=== PATIENT | male | born 1975 | race Caucasian/White ===

== ENCOUNTER 2016-11-06 20:24 | Outpatient (CLI) | payer MEDICAID | END 2016-11-06 20:25 | disposition critical access hospital (66) | LOC: EMS 20:24 | PROVIDERS: ATTEND Surgery | DX: R11.0 Nausea (principal) | CPT/HCPCS: A0425; A0429 ==

== ENCOUNTER 2016-11-06 20:31 | Emergency (ER) | payer MEDICAID ==
[2016-11-06] MEDS ORDERED: SODIUM CHLORIDE FLUSH 0.9% 10 ML SYRINGE IVP ONE (20:43)
[2016-11-06] MEDS ORDERED: ONDANSETRON 4 MG/2 ML VIAL IVP STA (20:46)
[2016-11-06] MEDS ORDERED: SODIUM CHLORIDE 0.9% 1,000 ML IV ONE (20:46)
[2016-11-06] MEDS ORDERED: diazePAM INJ 5 MG/ML SYRINGE IVP STA (20:47)
[2016-11-06] MEDS ORDERED: diazePAM INJ 5 MG/ML SYRINGE ONE ×2 (21:10→21:12)
[2016-11-06] MEDS ORDERED: ONDANSETRON 4 MG/2 ML VIAL ONE ×2 (21:10→21:12)
[2016-11-06 22:23] VITALS: BP 112/66
--- NOTE | 2016-11-06 22:45 | ED Physician Documentation ---
History of Present Illness - Stated complaint Stated Complaint: NAUSEA/MOTION SICKNESS - Chief complaint Chief Complaint: Neuro - History obtained from History obtained from: Patient, EMS - History of Present Illness Timing: Today - Additonal information Additional information: Patient is a 41 year old male with a history of hiv on retrovirals with no viral load who is presenting to the emergency department for vertigo and nausea. patient states that it started earlier today. patient states that he used to have episodes as a child. Patient's friend also reports that he took meth yesterday. Review of Systems Constitutional: denies: Fever, Chills Eyes: reports: Decreased vision Ears: denies: Ear pain, Drainage/discharge Nose: denies: Rhinorrhea / runny nose, Congestion Throat: denies: Sore throat GI: reports: Nausea, Vomiting. denies: Constipation, Diarrhea : denies: Dysuria, Frequency Skin: denies: Rash, Lesions Neurologic: reports: Other (vertigo). denies: Generalized weakness, Headache, Head injury Psychiatric: denies: Depressed, Suicidal, Homicidal Immunocompromised: denies: Immunocompromised PD PAST MEDICAL HISTORY - Past Medical History Past Medical History: Yes GI: GERD - Past Surgical History Past Surgical History: No - Present Medications Home Medications: Ambulatory Orders Medication Instructions Recorded Confirmed Efavirenz/Emtricitab/Tenofovir 1 tab PO QPM 11/06/16 11/06/16 [Atripla Tablet] Meclizine [Antivert] 12.5 mg PO Q6H #15 tablet 11/06/16 Ondansetron Odt [Zofran] 4 mg TL Q6H PRN #14 tablet 11/06/16 - Allergies Allergies/Adverse Reactions: Allergies Allergy/AdvReac Type Severity Reaction Status Date / Time No Known Drug Allergies Allergy Verified 11/06/16 20:36 - Social History Does the pt smoke?: No Smoking Status: Never smoker Does the pt drink ETOH?: No Does the pt have substance abuse?: Yes Substance Use and Type: Meth - Immunizations Immunizations are current?: Yes - POLST Patient has POLST: No PD ED PE NORMAL - Vitals Vital signs reviewed: Yes - General General: Alert and oriented X 3, Well developed/nourished - HEENT HEENT: Atraumatic, PERRL - Neck Neck: Supple, no meningeal sign - Cardiac Cardiac: RRR, No murmur - Respiratory Respiratory: No respiratory distress - Abdomen Abdomen: Soft, Non tender, Non distended - Derm Derm: Normal color, Warm and dry, No rash - Extremities Extremities: No deformity, No edema - Neuro Neuro: Alert and oriented X 3, 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 patient was nauseated with nystagmus. Patient symptoms worsened with position, and improved when he was still and lying to his right. patient was treated with fluids and valium. When patient was re-evaluated he stated he felt much better. patient's symptoms had resolved. Patient required no further work up and was stable for discharge with outpatient follow up. Departure - Departure Disposition: 01 Home, Self Care Clinical Impression: Benign positional vertigo Condition: Good Instructions: ED BPV Vertigo Follow-Up: KE DANG [Primary Care Provider] - As Needed Prescriptions: Meclizine [Antivert] 12.5 mg PO Q6H #15 tablet Ondansetron Odt [Zofran] 4 mg TL Q6H PRN #14 tablet PRN Reason: Nausea / Vomiting Comments: Your symptoms today are being caused by benign positional vertigo. it is not a precursor for anything serious. you will need to try to stay well hydrated and take the meclizine or due to eply maneuvers if your symptoms return. You should follow up with your pmd if your symptoms persist or become more frequent. Discharge Date/Time: 11/06/16 23:17
== END 2016-11-06 23:17 | disposition home or self-care (01) ==
LOC: EDUNIT# → ED 20:31
DX: H81.10 Benign paroxysmal vertigo, unspecified ear (principal); R11.0 Nausea; B20 Human immunodeficiency virus [HIV] disease; F15.90 Other stimulant use, unspecified, uncomplicated
CPT/HCPCS: 99283; 99284